=== PATIENT | male | born 1980 | race Two or more races ===

== ENCOUNTER 2018-12-31 12:56 | Emergency (ER) | payer OTHER, MEDICAID ==
[~2018-12-31] VITALS: Ht 177.8 cm; Wt 95.3 kg
[2018-12-31 14:59] VITALS: BP 129/72
== END 2018-12-31 15:36 | disposition home or self-care (01) ==
LOC: ER 12:56
DX: S93.492A Sprain of other ligament of left ankle, initial encounter (principal); W17.89XA Other fall from one level to another, initial encounter; Y93.61 Activity, american tackle football; Y92.89 Other specified places as the place of occurrence of the external cause; Y99.8 Other external cause status
CPT/HCPCS: 73610

== ENCOUNTER 2019-12-26 16:32 | Emergency (ER) | payer MEDICAID, OTHER ==
[~2019-12-26] VITALS: Ht 177.8 cm; Wt 95.3 kg
[2019-12-26 16:58] VITALS: BP 146/99
[2019-12-26] MEDS ORDERED: KETOROLAC TROMETH 60MG/2ML VIAL IM ONE (17:00)
== END 2019-12-26 17:46 | disposition home or self-care (01) ==
LOC: EDBD 16:32 → ER 16:32
DX: S46.912A Strain of unspecified muscle, fascia and tendon at shoulder and upper arm level, left arm, initial encounter (principal); S83.92XA Sprain of unspecified site of left knee, initial encounter; V49.9XXA Car occupant (driver) (passenger) injured in unspecified traffic accident, initial encounter; Y93.I9 Activity, other involving external motion; Y92.410 Unspecified street and highway as the place of occurrence of the external cause; Y99.8 Other external cause status
CPT/HCPCS: 73030; 73562; 96372; 99284; J1885